=== PATIENT | female | born 1995 | race Hispanic/Latino ===

== ENCOUNTER 2018-08-10 17:13 | Emergency (ER) | payer BC, MEDICAID ==
[2018-08-10] MEDS ORDERED: ONDANSETRON ODT 4 MG TAB ONE (17:25)
[2018-08-10] MEDS ORDERED: ACETAMINOPHEN 325 MG TAB ONE (17:38)
== END 2018-08-10 18:12 | disposition home or self-care (01) ==
LOC: EDH 17:13
DX: O26.893 Other specified pregnancy related conditions, third trimester (principal); B34.9 Viral infection, unspecified; Z98.890 Other specified postprocedural states; Z90.49 Acquired absence of other specified parts of digestive tract; Z3A.35 35 weeks gestation of pregnancy
CPT/HCPCS: 87804

== ENCOUNTER 2018-09-03 14:53 | Observation (INO) | payer BC, MEDICAID ==
[2018-09-05] MEDS ORDERED: PNV71COM3 PO (14:24)
== END 2018-09-03 16:40 | disposition home or self-care (01) ==
LOC: LDH 14:53
DX: O36.8130 Decreased fetal movements, third trimester, not applicable or unspecified (principal); Z3A.38 38 weeks gestation of pregnancy
CPT/HCPCS: 76819; G0378 ×2